=== PATIENT | male | born 1990 | race Asian ===

== ENCOUNTER → 2018-02-24 | Outpatient (CLI) | payer OTHER ==
--- NOTE | 2018-02-24 13:41 | DIAGNOSTIC IMAGING REPORT ---
(TESTICULAR) SCROTUM-CONT CLINICAL HISTORY: 27 years-old Male presenting with RIGHT TESTICULAR Pain, right INGUINAL PAIN. TECHNIQUE: Real-time grayscale and color and spectral Doppler ultrasound imaging of the scrotum was performed. COMPARISON: None. FINDINGS: Right testis: Normal echogenicity and echotexture. Testis measures 4.8 x 3.5 x 2.8 cm. Normal color Doppler flow and arterial and venous waveforms in the testicular parenchyma. Epididymal head normal. No hydrocele. No varicocele. Left testis: Normal echogenicity and echotexture. Testis measures 4.5 x 3.1 x 2.4 cm. Normal color Doppler flow and arterial and venous waveforms in the testicular parenchyma. Epididymal head normal. No hydrocele. No varicocele. Symmetric perfusion of the testes. IMPRESSION: No evidence of testicular torsion. Electronically signed by: Layo Cooney M.D. 02/24/2018 1:40 PM Dictated Date/Time: 02/24/2018 1:39 PM
== END | disposition home or self-care (01) ==
LOC: C.ULTR 12:59
PROVIDERS: ATTEND Emergency Medicine
DX: R10.31 Right lower quadrant pain (principal); N50.811 Right testicular pain